=== PATIENT | female | born 1965 | race Two or more races ===

== ENCOUNTER 2024-02-17 08:09 | Outpatient (OUT) | payer SELFPAY ==
--- NOTE | 2024-02-17 08:20 | XR_ITS ---
[address] [address] Patient Name: LAKISHA DONATO MRN: [id number] date: 1965 Sex: F Assigned Patient Location: [facility] Current Patient Location: [facility] Accession/Order Number: [id number] Exam Date: 02/17/2024 08:22 Report Date: 02/17/2024 09:35 At the request of: SIDNEY GOMES Procedure: XR chest 2V EXAMINATION: XR chest 2V HISTORY: Positive [place] Tuberculosis Test COMPARISON: No relevant comparison available. TECHNIQUE: AP and lateral FINDINGS: LUNGS: No significant pulmonary parenchymal abnormalities. VASCULATURE: No increased pulmonary vasculature. PLEURA: No pneumothorax, effusion, or pleural thickening. CARDIAC: No cardiomegaly or cardiac silhouette abnormality. MEDIASTINUM: No visible mass or adenopathy. BONES: No fracture or visible bone lesion. Dextrocurvature of the thoracic spine OTHER: Negative. XR/XR chest 2V IMPRESSION: No acute cardiopulmonary process Electronically authenticated by: MATT ARCHIBALD Date: 02/17/2024 09:35
== END 2024-02-17 08:10 | disposition home or self-care (01) ==
PROVIDERS: Visit Provider Nurse Practitioner Adult Health
DX: R76.11 Nonspecific reaction to tuberculin skin test without active tuberculosis (principal)
CPT/HCPCS: 71046